=== PATIENT | female | born 1970 | race Caucasian/White ===

== ENCOUNTER 2017-05-09 10:20 | Emergency (ER) | payer BC ==
--- NOTE | ~2017-05-09 | ER ---
PATIENT'S NAME: IRIS MOSQUEDA AGE: 46 Y [address] ROOM: [place] [address] LOCATION: ED ADMIT DATE: 05/09/2017 ER/Outpatient Report DISCHARGE DATE: 05/09/2017 FAMILY PHYSICIAN: Chemo Álvarez MD ATTENDING PHYSICIAN: Earl Rincon ADDENDUM: IMPRESSION: 1. Abdominal pain. 2. Likely ulcer disease. EMERGENCY DEPARTMENT COURSE: The patient was seen and evaluated. She was given GI cocktail with near complete resolution of her symptoms. Based on her timeframe, I think single troponins and EKG ruled out for ACS as appropriate. I do not think she requires any imaging at this time. There is no evidence of hepatobiliary or pancreatic involvement. We will not pursue further imaging of those at this point today. Her presentation is not consistent with biliary colic. She is to follow up with GI this next week. We will start her on famotidine in the interim. I did discuss the case with Dr. Shields to see if we could obtain a sooner visit for the patient. He will notify the scheduling office and see if that will be possible. They will contact the patient for that. All questions were answered and the patient was discharged from the ER in improved condition. EARL RINCON MD JH/modl /[id number] d: 05/10/17905 t: 05/21/17 0623, OUTPATIENT REPORT
--- NOTE | ~2017-05-09 | ER ---
PATIENT'S NAME: IRIS MOSQUEDA [facility] AGE: 46 Y [address] ROOM: [place] [address] LOCATION: [facility] ADMIT DATE: 05/09/2017 ER/Outpatient Report DISCHARGE DATE: 05/09/2017 FAMILY PHYSICIAN: Chemo Álvarez MD ATTENDING PHYSICIAN: Ramses Haji CHIEF COMPLAINT: Abdominal pain. HISTORY OF PRESENT ILLNESS: Ms. Mosqueda presents for abdominal pain. It is in the mid regions and the upper part of her abdomen. It does not radiate through to her back. She has had this pain off and on for the last 6 months. It has been getting worse over the last week or so. Last evening, it got particularly bad. She was able to eat some last night. She had normal bowel movements and normal stools. She states she is passing normal gas. She states that she has ulcer disease and is taking omeprazole. She was evaluated in August with upper endoscopy for ulcer disease and was told to come back in 6 months, but she has not done that yet. With the return of her symptoms the other day, she called GI and has an appointment for Saturday and is hoping to move that up sooner. They are also worried about her gallbladder contributing to this. PAST MEDICAL HISTORY: Documented on the record and reviewed by me. SOCIAL HISTORY: Documented on the record and reviewed by me. MEDICATIONS: Documented on the record and reviewed by me. ALLERGIES: DOCUMENTED ON THE RECORD AND REVIEWED BY ME. REVIEW OF SYSTEMS: All systems are reviewed and negative except as noted in the HPI. PHYSICAL EXAMINATION: VITAL SIGNS: Blood pressure 169/89, pulse 92, respiratory rate is 18, temperature 98, SpO2 is 96% on room air. Pain is rated at 6/10. GENERAL: An age-appropriate female, in mild pain, recumbent on exam table, in no apparent distress. NEUROLOGIC: Awake and alert. GCS 15. No focal deficits. No asymmetry. HEENT: Normocephalic, atraumatic. Eyes are PERRL. Oropharynx is clear. NECK: Supple. Trachea is midline. PATIENT'S NAME: IRIS MOSQUEDA [facility] AGE: 46 Y [address] ROOM: [place] [address] LOCATION: [facility] ADMIT DATE: 05/09/2017 ER/Outpatient Report DISCHARGE DATE: 05/09/2017 FAMILY PHYSICIAN: Chemo Álvarez MD ATTENDING PHYSICIAN: Ramses Haji CHEST/HEART: Regular rate and rhythm. No murmurs. Lungs are clear to auscultation bilaterally. No rhonchi, wheezes, or rales. ABDOMEN: Soft, nontender, and nondistended. Negative Delacruz's sign. No rebound or guarding. No masses or focal tenderness. BACK: Normal to inspection and palpation. No CVA tenderness. EXTREMITIES: Warm and well perfused with no edema or erythema. SKIN: Clean, dry, and intact. LABORATORY DATA AND X-RAYS: No imaging was obtained. EKG is sinus rhythm, rate of 70 with otherwise normal intervals and axis. No signs of acute ischemia. No comparison available. Urinalysis is unremarkable. is negative. CBC with no appreciable abnormalities. CMS with no appreciable abnormalities of the electrolytes or renal function. LFTs are within normal limits. Amylase and lipase are acceptable, troponin is nondetectable. MD ANGELIQUE REDDING/modl /[id number] d: 05/10/1710 t: 05/21/17 0620, OUTPATIENT REPORT
[~2017-05-09 10:20] MED LIST: BIOCLEANSE PO; CLARITIN10 MG PO; NORCO 5-325 TA1 EACH PO; PROTONIX40 MG PO; THERA-VITE W/ B1 TAB PO; TRIVORA-28 TAB1 EACH PO
[2017-05-09 10:55] LABS: BILIRUBIN URINE NEGATIVE (NEGATIVE); BLOOD URINE NEGATIVE /UL (NEGATIVE); COLOR URINE STRAW (YELLOW); GLUCOSE URINE NEGATIVE (NEGATIVE); KETONE URINE NEGATIVE (NEGATIVE); LEUKOCYTES URINE NEGATIVE /UL (NEGATIVE); NITRITE URINE NEGATIVE (NEGATIVE); PROTEIN URINE NEGATIVE (NEGATIVE); TURBIDITY URINE CLEAR (CLEAR); UROBILINOGEN URINE NORMAL (NORMAL)
[2017-05-09 11:04] LABS: BASOPHIL % 0.5 %; EOSINOPHIL # 0.3 K/uL (0.0-0.5); EOSINOPHIL % 5.1 %; HEMATOCRIT 40.5 % (33.0-46.0); HEMOGLOBIN 13.7 g/dL (10.0-15.0); IMMATURE GRANULOCYTE % 0.2 %; LYMPHOCYTE # 2.2 K/uL (0.8-4.0); LYMPHOCYTE % 35.6 %; MCH 32.2 pg (27.0-34.0); MCHC 33.8 gm/dL (32.0-36.5); MCV 95.3 fl (83.0-98.0); MONOCYTE # 0.5 K/uL (0.0-1.0); MONOCYTE % 8.4 %; MPV 8.5 fl (9.4-12.4); NEUTROPHIL # (ANC) 3.1 K/uL (1.8-7.8); NEUTROPHIL % 50.2 %; NRBC % 0 /100WBC (0-0.00); PLATELET COUNT 336 K/uL (150-450); RBC 4.25 M/uL (3.50-5.50); RDW-CV 12.4 % (11.9-14.6); WBC 6.1 K/uL (4.0-11.0)
[2017-05-09 11:13] LABS: INR - (THERAPEUTIC) 0.94 (0.92-1.07); PROTIME 9.9 SECONDS (9.8-11.4); PTT 27 SECONDS (25-32)
[2017-05-09 11:31] LABS: ALBUMIN 3.4 gm/dL (3.5-5.0); ALK PHOS 53 IU/L (33-138); ALT 50 IU/L (12-78); AST 25 IU/L (10-40); BLOOD UREA NITROGEN 12 mg/dL (6-24); CALCIUM 8.7 mg/dL (8.5-10.5); CHLORIDE 108 mMol/L (96-110); CO2 25 mMol/L (22-32); SODIUM 140 mMol/L (135-145); TOTAL BILIRUBIN 0.5 mg/dL (0.0-1.5)
[2017-05-13] MEDS ORDERED: ELAVIL25 MG PO (16:05)
[2017-05-13] MEDS ORDERED: FAMOTIDINE20 MG PO (16:06)
[2017-05-13] MEDS ORDERED: DICYCLOMINE HCL20 MG PO (16:08)
== END 2017-05-09 12:42 | disposition disaster alternative care site (69) ==
LOC: GMED 10:20
PROVIDERS: Emergency Medicine
DX: R10.10 Upper abdominal pain, unspecified (principal); Z88.6 Allergy status to analgesic agent; Z79.899 Other long term (current) drug therapy

== ENCOUNTER → 2017-05-14 | Day surgery (SDC) | payer BC ==
[~2017-05-14] VITALS: Ht 152.4 cm; Wt 92.4 kg
[~2017-05-14] MED LIST changes: +DICYCLOMINE HCL20 MG PO; +ELAVIL25 MG PO; +FAMOTIDINE20 MG PO
== END ==
LOC: GPOC 05-13 14:00 → GEND 07:27
PROC: 0DBH8ZX Excision of Cecum, Via Natural or Artificial Opening Endoscopic, Diagnostic (ICD-10-PCS; principal; 2017-05-14)
DX: Z12.11 Encounter for screening for malignant neoplasm of colon (principal); D12.0 Benign neoplasm of cecum; K57.30 Diverticulosis of large intestine without perforation or abscess without bleeding; K21.9 Gastro-esophageal reflux disease without esophagitis; M19.90 Unspecified osteoarthritis, unspecified site; Z87.891 Personal history of nicotine dependence; E66.9 Obesity, unspecified; Z98.890 Other specified postprocedural states; Z79.899 Other long term (current) drug therapy
CPT/HCPCS: J2001; J7030

== ENCOUNTER → 2017-05-17 | Outpatient (CLI) | payer BC | END | disposition disaster alternative care site (69) | LOC: GRAD 12:48 | DX: R10.32 Left lower quadrant pain (principal); N83.202 Unspecified ovarian cyst, left side; N83.201 Unspecified ovarian cyst, right side; I70.90 Unspecified atherosclerosis; M43.06 Spondylolysis, lumbar region; R14.0 Abdominal distension (gaseous) ==

== ENCOUNTER 2017-06-05 00:26 | Observation (INO) | payer BC ==
[~2017-06-05] VITALS: Ht 152.4 cm; Wt 94.7 kg
--- NOTE | ~2017-06-05 | HP ---
PATIENT'S NAME: IRIS MOSQUEDA [facility] AGE: 46 Y [address] ROOM: [address] [address] LOCATION: [facility] [place] ADMIT DATE: 06/05/2017 History & Physical DISCHARGE DATE: FAMILY PHYSICIAN: Chemo Álvarez MD ATTENDING PHYSICIAN: Chemo Álvarez DATE OF SERVICE: 06/05/2017 CHIEF COMPLAINT: Abdominal pain. REVIEW OF RECORD: Iris is a pleasant 46-year-old young lady, who is very frustrated with chronic abdominal pain. She says this started one year ago, back in April 2016. She underwent a pretty extensive workup over the next three months including ultrasounds, CAT scans, HIDA scans, MRCPs, EGD, colonoscopy. Even though it sounded like biliary colic, nothing was proven to be abnormal. Liver function tests were always normal and all other laboratory data unimpressive. The patient over the last several weeks has increasing pain, has had her second CT of recent note, and again it was normal. The ultrasound was normal. She was admitted to the hospital and seen by Dr. Shields. Had suspected some irritable bowel component. He even recommended possibly tertiary evaluation at the [facility] or [facility]. I was asked to have my input. The patient states that the pain woke her up at 12:30 last night. It has been persistent. She has had some morphine about 6 hours ago, but still has some discomfort in the right upper quadrant. She feels bloated, does not have crampy pain, says her bowel function has been normal. She drinks about 2 drinks of alcohol a day. Never had pancreatitis. Denies trauma, and no foreign travel for over a year. She was in [place] at that time, but said she did not get sick. She has had no dysuria or hematuria. No kidney stone history. She denies any cough, denies any bone pain. ALLERGIES: NONE. PAST SURGICAL HISTORY: and colonoscopy, EGD. MEDICATIONS: Include: 1. control pills. 2. Pepcid. 3. Protonix. 4. Other supplements. PATIENT'S NAME: IRIS MOSQUEDA [facility] AGE: 46 Y [address] ROOM: [address] [address] LOCATION: [facility] [place] ADMIT DATE: 06/05/2017 History & Physical DISCHARGE DATE: FAMILY PHYSICIAN: Chemo Álvarez MD ATTENDING PHYSICIAN: Chemo Álvarez SOCIAL HISTORY: She is . Does not smoke. She does have 1-2 drinks of alcohol a day. FAMILY HISTORY: Is noncontributory. REVIEW OF SYSTEMS: She denies any fevers or chills. Denies any change in her weight. She is able to eat when she does not have the attack. She has had no vomiting, but has had nausea and bloating. Denies any shortness of breath or productive cough. Denies any chest pain radiating to her neck or arm. Denies any lower abdominal pain. No blood in her urine or stool. No abnormal vaginal bleeding. Denies any swollen joints or back pain. PHYSICAL EXAMINATION: GENERAL: She is a pleasant 46-year-old young lady, who appears to be in discomfort. HEENT: Her head is normocephalic. Sclerae are nonicteric. Mucous membranes are dry. NECK: Supple. No adenopathy. No supraclavicular or axillary adenopathy. BREASTS: Exam not performed. She is due for a mammogram. LUNGS: Clear to auscultation. HEART: Normal sinus rhythm. ABDOMEN: Obese. Positive bowel sounds. She has mild tenderness below the right subcostal margin. No hepatomegaly to percussion. No palpable mass. No evidence of abdominal wall hernias. EXTREMITIES: 2/2 femoral and posterior tibial pulses. No peripheral edema. IMPRESSION: Chronic abdominal pain. Extensive workup with multiple tests repeated. It does sound like the patient has gallbladder dysfunction, but her previous one year ago HIDA scan she states was normal. I discussed with the patient the difficulty in finding the diagnosis and then I would recommend surgical intervention for her gallbladder if we found something that was abnormal. In that light, I think we could offer her another HIDA scan as it has been years. I have had some experience with HIDA scans changing over a year period with the patient's persistent symptoms. If that was negative, then we could maybe seek opinion at the [facility]. Thank you very much for allowing me to participate in her care. KANDICE GONZALEZ MD PATIENT'S NAME: IRIS MOSQUEDA [facility] AGE: 46 Y [address] ROOM: [place] [address] LOCATION: [facility] [place] ADMIT DATE: 06/05/2017 History & Physical DISCHARGE DATE: FAMILY PHYSICIAN: Chemo Álvarez MD ATTENDING PHYSICIAN: Chemo Álvarez WTS/modl /[id number] D: 87 HISTORY & PHYSICAL
--- NOTE | ~2017-06-05 | CON ---
PATIENT'S NAME: IRIS MOSQUEDA [facility] AGE: 46 Y [address] ROOM: [id number] [place], [place] [address] [place] [facility] [place]: 06/05/2017 Consultation DISCHARGE DATE: FAMILY PHYSICIAN: Chmeo Álvarez MD ATTENDING PHYSICIAN: Chemo Álvarez DATE OF CONSULTATION: 06/05/2017 REFERRING PHYSICIAN: MYNOR SCHAEFER MD HOSPITAL CONSULTATION REFERRING PHYSICIAN: Alfred Phelps MD REASON FOR CONSULTATION: Right upper quadrant pain. HISTORY OF PRESENT ILLNESS: This is a pleasant, 46-year-old female who is known to our Gastroenterology Services for chronic abdominal pain. The patient states that yesterday at 0530 hours, she had a meal consisting of turkey, hoffmann and lettuce, and tomato sandwich. After this, she experienced a severe heartburn. She did take her Pepcid as well as additional Tums. She also ate some popcorn around 0930 hours and proceeded to go to bed. She states that around midnight, she woke up with severe abdominal pain located in the right upper quadrant that moved throughout her stomach. The patient states that this pain has been significantly different from her chronic abdominal pain that has had extensive workup that has all been essentially negative. She denies any associated nausea or vomiting with this. No change in bowel habits. No fever or chills. Prior to this, her weight has been stable. Appetite has been good as well. Previous workup on 08/26/2016, upper endoscopy was completed showing normal study except for duodenitis in the duodenal bulb. Biopsies were obtained at that time showing mild chronic gastritis of the stomach. Small bowel biopsy showed no pathological abnormality. Esophagus showed esophagitis with prominent eosinophils. On 05/14/2017, colonoscopy was also completed; a 10-mm flat polyp, Vale 11b removed per hot snare with saline lift. Pathology showed adenoma for this. The patient was also noted to have diverticulosis. A CT scan completed on 05/17/2017 showed no free air with no findings of bowel obstruction, bilateral ovarian cysts, vascular calcifications, and bilateral L5 spondylosis. KUB completed on May 10 showed nonspecific, nonobstructive bowel gas pattern. HIDA scan completed on 04/30/2016 showed normal nuclear medicine gallbladder HIDA scan and ejection fraction calculation. An MRCP completed on 09/03/2016 was a negative study. PATIENT'S NAME: IRIS MOSQUEDA [facility] AGE: 46 Y [address] [place] [facility] [place] [address] [place] [facility] [place] DATE: 06/05/2017 Consultation DISCHARGE DATE: FAMILY PHYSICIAN: Chemo Álvarez MD ATTENDING PHYSICIAN: Chemo Álvarez PAST MEDICAL HISTORY: 1. Chronic abdominal pain with numerous workup that has essentially been negative. 2. Arthritis. 3. Gastroesophageal reflux disease. 4. History of gastritis. PAST SURGICAL HISTORY: 1. Upper endoscopy completed in August 2016. 2. Colonoscopy completed in April 2017. 3. in 1989, followed by laparoscopy in 1990 with "web removed.". SOCIAL HISTORY: The patient is . Denies any ongoing toxic habits. She quit smoking approximately 16 years ago. Denies any illicit drug use. FAMILY HISTORY: She denies any known family history of gastrointestinal diseases or cancers to her knowledge. She does state that irritable bowel syndrome does correlate amongst some family members. She does state that her daughter also had her gallbladder removed secondary to "nonfunctioning." ALLERGIES: NO KNOWN MEDICATION ALLERGIES. CURRENT MEDICATIONS: Please refer to the medication administration record. REVIEW OF SYSTEMS: An all point review of systems was completed and all were negative except for those identified in the History of Present Illness. PHYSICAL EXAMINATION: GENERAL: A pleasant, 46-year-old female, lying in bed, who appears to be in no acute distress. VITAL SIGNS: Temperature 97.7, pulse is 70, respirations of 16, blood pressure 104/60, and oxygen saturations 95% on room air. SKIN: [place], warm, and dry. No jaundice. HEENT: Head is normocephalic and atraumatic. Pupils are equal, round, and reactive to light. Sclerae are clear. Nonicteric. Oral mucosa is pink and moist. No thyromegaly. NECK: Soft and supple. CARDIOVASCULAR: Regular. Normal S1 and S2. RESPIRATORY: Respirations are even and unlabored. LUNGS: Clear to auscultation. PATIENT'S NAME: IRIS MOSQUEDA [facility] AGE: 46 Y [address] [place] [facility] [place] [facility] [place] [id number] [place] [facility] [place]: 06/05/2017 Consultation DISCHARGE DATE: FAMILY PHYSICIAN: Chemo Álvarez MD ATTENDING PHYSICIAN: Chemo Álvarez ABDOMEN: Soft, round, and tender in her right upper quadrant. No rebound, rigidity, or guarding noted. Bowel sounds are positive. MUSCULOSKELETAL: No muscle weakness or atrophy. EXTREMITIES: No edema. NEUROLOGIC: Grossly nonfocal. LABORATORY DATA AND IMAGING STUDIES: Labs and Diagnostics: Previous workup as above. Recent laboratory workup completed on admission to [facility] includes white blood cell count of 9.2, hemoglobin of 13.9, hematocrit of 40.3, and platelets of 367,000. Chemistry panel includes a glucose of 93, BUN of 12, creatinine 0.9, sodium 138, potassium of 4.1, chloride of 108, CO2 of 22, albumin of 3.6, AST of 24, ALT of 43, alkaline phosphatase of 54, and total bilirubin is 0.3. Prothrombin time is 9.9, INR 0.94, and PTT of 28. Lipase of 206. Cardiac enzymes have all been within normal limits. Current CT scan and abdominal ultrasound are pending at this time. Per verbal report from a bedside abdominal ultrasound completed in the emergency room for this patient, she did state that there was "gallbladder sludge." ASSESSMENT AND PLAN: Again this is a very pleasant, 46-year-old female with chronic abdominal pain with numerous workup, has all extensively been completed that and ultimately negative. The patient was seen in the emergency room with acute onset of new right upper quadrant abdominal pain. Previous workup and laboratory has been evaluated. At this time, we will await for her CT scan and abdominal ultrasound reports to be completed. This was discussed with the patient as well as the patient's who is at bedside. Likely, this is functional abdominal pain, and likely related to possible irritable bowel, though further workup will be warranted at this time, as her pain is stated as "change from previous." Further recommendations will be given status post abdominal ultrasound and CT scan results. Thank you for this consultation. FLO PUGH APRN FOR MD MELANIE PATIÑO/pb /[id number] d: 06/05/17 1240 t: 06/07/17 1550, CONSULTATION REPORT
--- NOTE | ~2017-06-05 | ER ---
PATIENT'S NAME: IRIS MOSQUEDA [facility] AGE: 46 Y [address] ROOM: [place] [address] LOCATION: [facility] [place] ADMIT DATE: 06/05/2017 ER/Outpatient Report DISCHARGE DATE: FAMILY PHYSICIAN: Chemo Álvarez MD ATTENDING PHYSICIAN: Chemo Álvarez Time of Arrival: 0026 hours. Time of Evaluation: 0030 hours. CHIEF COMPLAINT: Right upper quadrant abdominal pain. HISTORY OF PRESENT ILLNESS: The patient is a 46-year-old female, who presents to the emergency department today with a chief complaint of right upper quadrant abdominal pain. The patient reports she has had off and on abdominal pain for approximately a year. She has had multiple workups; however, this is a different type of pain than she has had before. It is a sharp, stabbing pain in the right upper quadrant. She denies any fevers or chills. No nausea or vomiting. No diarrhea. No painful urination. No constipation. She reports it is currently 10/10 in severity. PAST MEDICAL HISTORY: Chronic abdominal pain and gastroesophageal reflux disease. PAST SURGICAL HISTORY: Colonoscopy, EGD, , and back surgery. SOCIAL HISTORY: The patient denies any tobacco, alcohol, or illicit drug use. ALLERGIES: NO KNOWN DRUG ALLERGIES. MEDICATIONS: Please see list. REVIEW OF SYSTEMS: All systems are reviewed by myself and are negative with the exception of those discussed in HPI and past medical history. PHYSICAL EXAMINATION: VITAL SIGNS: Weight 93.4 kg, blood pressure 166/92, pulse 88, respiratory rate 20, temperature 98.8, oxygen saturation 96% on room air. GENERAL: The patient is a 46-year-old female, who appears stated age, in PATIENT'S NAME: IRIS MOSQUEDA [facility] AGE: 46 Y [address] ROOM: [place] [address] LOCATION: [facility] [place] ADMIT DATE: 06/05/2017 ER/Outpatient Report DISCHARGE DATE: FAMILY PHYSICIAN: Chemo Álvarez MD ATTENDING PHYSICIAN: Chemo Álvarez acute distress. She is obese. HEENT: Head: Normocephalic, atraumatic. Pupils are equal, round, and reactive to light. Oropharynx is clear. Mucous membranes are moist. NECK: Supple. There is no nuchal rigidity. CARDIOVASCULAR: Regular rate and rhythm. No murmurs, rubs, or gallops. LUNGS: Clear to auscultation bilaterally. No wheezes, rales, or rhonchi. ABDOMEN: Soft with moderate tenderness to palpation in right upper quadrant. There is no rebound, rigidity, or guarding. Positive bowel sounds. MUSCULOSKELETAL: The patient moves all 4 extremities. SKIN: Warm and dry. There are no rashes or lesions noted. LABORATORY DATA AND X-RAYS: Venous blood gas 7.52/31/91/25.3/22.9. Lactate is 1.7. CBC is normal. CMP is normal. LFTs are normal. Cardiac enzymes are normal. Serum hCG is less than 1. Urinalysis is negative. H. pylori is negative. Coags are normal. Procalcitonin is less than 0.05. CT scan of the abdomen and pelvis with and without IV contrast are obtained. It does show mild jejunal distention without transition point. There is suspicion of focal ileus or low-grade enteritis developing obstruction is not excluded. A bedside ultrasound is performed by myself. There is no obvious acute cholecystitis. There is no gallbladder wall thickening. There is what appears to be questionable sludge noted in the gallbladder. There is no evidence of cholelithiasis. Common bile duct appears 5 mm. There is no pericholecystic fluid. IMPRESSION: 1. Acute right upper quadrant abdominal pain. 2. Initial visit. EMERGENCY DEPARTMENT COURSE: The patient was brought back to the examination room. Seen and evaluated by myself. An IV is established. Laboratory analysis and imaging are obtained as described above. The patient is given a liter of normal saline. She is given 4 mg of Zofran IV as well as 2 boluses of morphine 5 mg IV. She is given a GI cocktail. This has resulted in some improvement in the patient's symptoms. She continues to have pain. I have discussed the case with Dr. Phelps, who is on-call for Dr. Álvarez. Does agree to accept the patient for further evaluation, treatment, and management. DISPOSITION: The patient is admitted under the care of Dr. Phelps in stable condition. AKUA CASTILLO DO PATIENT'S NAME: IRIS MOSQUEDA [facility] AGE: 46 Y [address] ROOM: [place] [address] LOCATION: [facility] [place] ADMIT DATE: 06/05/2017 ER/Outpatient Report DISCHARGE DATE: FAMILY PHYSICIAN: Chemo Álvarez MD ATTENDING PHYSICIAN: Chemo Álvarez/pb /[id number] d: 06/05/17 0455 t: 06/06/172009, OUTPATIENT REPORT
--- NOTE | ~2017-06-05 | HP ---
PATIENT'S NAME: IRIS MOSQUEDA [facility] AGE: 46 Y [address] ROOM: [place] [address] [place] [facility] [place]: 06/05/2017 History & Physical DISCHARGE DATE: FAMILY PHYSICIAN: Chemo Álvarez MD ATTENDING PHYSICIAN: Chemo Álvarez DATE OF SERVICE: CHIEF COMPLAINT: Abdominal pain, specifically right upper quadrant. HISTORY OF PRESENT ILLNESS: The patient is a 46-year-old female who has been battling re-occurrent abdominal pain and bloating and swelling for the past year. The patient states that she has seen Gastroenterology and several tests done including a colonoscopy 2 weeks ago, which only revealed a polyp. The patient states last night in bed she woke to this pain all of a sudden it became extremely severe. The patient has little nausea, but denies any diarrhea or constipation, hematochezia or melena, chest pain, shortness of breath, fevers, chills, or headaches. PAST MEDICAL HISTORY: GERD. PAST SURGICAL HISTORY: 1. Back surgery. 2. . 3. Colonoscopy. 4. EGD. 5. Laparoscopic procedure. ALLERGIES: NO KNOWN MEDICAL ALLERGIES. MEDICATIONS: Please see list. SOCIAL HISTORY: The patient denies any tobacco use. FAMILY HISTORY: Significant for diabetes in brother and maternal grandfather. REVIEW OF SYSTEMS: A complete review of systems obtained, pertinent positives and negatives as PATIENT'S NAME: IRIS MOSQUEDA [facility] AGE: 46 Y [address] ROOM: [place] [address] [place] [facility] [place]: 06/05/2017 History & Physical DISCHARGE DATE: FAMILY PHYSICIAN: Chemo Álvarez MD ATTENDING PHYSICIAN: Chemo Álvarez mentioned in the HPI. OBJECTIVE: VITAL SIGNS: Temp is 98.8, pulse 88, respirations 20, blood pressure 166/92. GENERAL: The patient is alert and oriented. Appears in mild distress due to her pain. HEENT: Head: Normocephalic, atraumatic. Eyes: Conjunctivae clear. No scleral icterus. Mouth: Oropharynx grossly moist and pink. No lesion or exudates. NECK: Supple. No lymphadenopathy. HEART: Regular rate and rhythm. No rubs, murmurs, or gallops. LUNGS: Clear to auscultation bilaterally. ABDOMEN: Tender in all quadrants, but significantly in right upper quadrant. No rebound or guarding. Bowel sounds present. EXTREMITIES: No cyanosis, clubbing, or edema. VASCULAR: Pulses +2 and equal. SKIN: No rash or lesions. LYMPHATICS: No lymphadenopathy. NEUROLOGIC: Cranial nerves II through XII are grossly intact. LABORATORY DATA: CBC and BMP were unremarkable and bedside ultrasound did show some gallbladder sludge. CT is still pending, but did not show any significant findings. ASSESSMENT: 1. Abdominal pain, right upper quadrant. 2. Nausea. 3. Gastroesophageal reflux disease. PLAN: At this time, we will admit the patient and do IV Dilaudid for pain control because she was not getting adequate control with morphine in the emergency department. We will have Gastroenterology follow this morning and get a formal ultrasound. We will continue with IV fluid hydration and treat her nausea with Zofran. We will follow Gastroenterology's recommendations. MD GLO JACKSON/pb /[id number] D: T: [id number] HISTORY & PHYSICAL
[2017-06-05 00:49] LABS: BICARBONATE 25.3 mmol/L (18.0-23.0); LACTATE 1.7 mEq/L (0.50-1.60); PCO2 31 mmHg (35-45); PO2 91 mmHg (80-90)
[2017-06-05 00:50] LABS: BASOPHIL % 0.4 %; EOSINOPHIL # 0.6 K/uL (0.0-0.5); HEMATOCRIT 40.3 % (33.0-46.0); HEMOGLOBIN 13.9 g/dL (10.0-15.0); IMMATURE GRANULOCYTE % 0.1 %; LYMPHOCYTE % 44.1 %; MCH 32.4 pg (27.0-34.0); MCHC 34.5 gm/dL (32.0-36.5); MCV 93.9 fl (83.0-98.0); MONOCYTE # 0.9 K/uL (0.0-1.0); MONOCYTE % 9.6 %; MPV 8.5 fl (9.4-12.4); NEUTROPHIL # (ANC) 3.7 K/uL (1.8-7.8); NEUTROPHIL % 39.8 %; NRBC % 0 /100WBC (0-0.00); PLATELET COUNT 367 K/uL (150-450); RBC 4.29 M/uL (3.50-5.50); RDW-CV 12.7 % (11.9-14.6); WBC 9.2 K/uL (4.0-11.0)
[2017-06-05 00:59] LABS: INR - (THERAPEUTIC) 0.94 (0.92-1.07); PROTIME 9.9 SECONDS (9.8-11.4); PTT 28 SECONDS (25-32)
[2017-06-05 01:13] LABS: ALBUMIN 3.6 gm/dL (3.5-5.0); ALK PHOS 54 IU/L (33-138); ALT 43 IU/L (12-78); ANION GAP 12.1 (10.0-19.0); AST 24 IU/L (10-40); BLOOD UREA NITROGEN 12 mg/dL (6-24); CALCIUM 9.3 mg/dL (8.5-10.5); CHLORIDE 108 mMol/L (96-110); CO2 22 mMol/L (22-32); CPK 100 IU/L (21-215); CREATININE 0.9 mg/dL (0.5-1.1); POTASSIUM 4.1 mMol/L (3.7-5.1); SODIUM 138 mMol/L (135-145); TOTAL PROTEIN 7.6 g/dL (6.0-8.4)
[2017-06-05 01:15] LABS: TOTAL BILIRUBIN 0.3 mg/dL (0.0-1.5)
[2017-06-05 01:21] LABS: BILIRUBIN URINE NEGATIVE (NEGATIVE); BLOOD URINE NEGATIVE /UL (NEGATIVE); COLOR URINE YELLOW (YELLOW); GLUCOSE URINE NEGATIVE (NEGATIVE); KETONE URINE NEGATIVE (NEGATIVE); LEUKOCYTES URINE NEGATIVE /UL (NEGATIVE); NITRITE URINE NEGATIVE (NEGATIVE); PROTEIN URINE NEGATIVE (NEGATIVE); TURBIDITY URINE CLEAR (CLEAR); UROBILINOGEN URINE NORMAL (NORMAL)
== END 2017-06-06 16:47 | disposition disaster alternative care site (69) ==
LOC: GMED 00:26 → GMSU 03:17
PROVIDERS: Emergency Medicine; ADMIT Family Medicine
DX: R10.11 Right upper quadrant pain (principal); R11.0 Nausea; K21.9 Gastro-esophageal reflux disease without esophagitis; Z98.890 Other specified postprocedural states; Z79.899 Other long term (current) drug therapy
CPT/HCPCS: A9537; J1170; J2270; J2405; J7030; Q9967